=== PATIENT | female | born 1970 | race Two or more races ===

== ENCOUNTER 2017-02-18 20:42 | Emergency (ER) | payer OTHER ==
[~2017-02-18] VITALS: Ht 160 cm; Wt 72.6 kg
--- NOTE | 2017-02-18 20:50 | NUR ---
PT REY FROM [facility] FOR ABNORMAL LABS K 2.9 PER. PT NONVERBAL. PT ABLE TO NOD YES AND NO TO QUESTIONS. NO SOB NOTED. PT CONNECTED TO VENT WITH PRESCRIBED SETTINGS: SHILEY 8 AC 12VT 450 PEEP 5 FI02 35%. PT HAS IV ON LEFT HAND 24G INTACT AND PATENT PLACED BY SNF. PT PLACED ON MONITOR WAITING FOR MD TRACEY.
[2017-02-18 20:57] VITALS: BP 103/47
--- NOTE | 2017-02-18 21:00 | NUR ---
RT NOTE PT PLACED ON VENT. SETTINGS ENDORSED BY TRANSPORT RT AC 12 450 35% +5. PT VENTILATED VIA SHILEY 8 TRACH. PT AWAKE AND ALERT. ALARMS SET PER PROTOCOL AND AUDIBLE. VENT PLUGGED IN TO RED OUTLET. AMBU BAG AT BED SIDE. NO DISTRESS NOTED. WILL CONTINUE TO MONITOR. Addendum: 02/18/17 at 2102 by ANGELICA DE LEÓN RT Amended: Links added.
--- NOTE | 2017-02-18 21:10 | NUR ---
LAB AT BEDSIDE FOR BLOOD DRAW.
--- NOTE | 2017-02-18 21:10 | NUR ---
FAMILY AT BEDSIDE
[2017-02-18 21:19] LABS: CALCIUM, SERUM 9.7 mg/dL (8.5-10.1); CREATININE 0.8 mg/dL (0.6-1.3)
[2017-02-18 21:20] LABS: POTASSIUM 2.8 mmol/L (3.5-5.1)
[2017-02-18] MEDS ORDERED: POTASSIUM CL. PREMIX PERIPHER. 50 ML IV ONE (21:25)
[2017-02-18] MEDS ORDERED: Magnesium 1GM/D5W 100ML PREMIX 100 ML IV ONE ×4 (21:25→21:48)
[2017-02-18] MEDS ORDERED: POTASSIUM CL. PREMIX PERIPHER. 50 ML ONE ×2 (21:34→22:49)
[2017-02-18 21:36] LABS: BASOPHILS # (AUTO) 0.1 /CMM (0.0-0.2); BASOPHILS % (AUTO) 0.7 % (0.0-2.0); EOSINOPHILS # (AUTO) 0.2 /CMM (0.0-0.7); EOSINOPHILS % (AUTO) 1.8 % (0.0-6.0); HEMATOCRIT 33 % (33-45); HEMOGLOBIN 11.1 g/dL (11.5-14.8); LYMPHOCYTES # (AUTO) 2.2 /CMM (0.8-4.8); LYMPHOCYTES % (AUTO) 20.4 % (20.0-44.0); MEAN CORPUSCULAR HEMOGLOBIN 31 PG (26.0-33.0); MEAN CORPUSCULAR HGB CONC 34 g/dl (31.0-36.0); MEAN CORPUSCULAR VOLUME 92 fL (82-100); MONOCYTES # (AUTO) 0.7 /CMM (0.1-1.30); NEUTROPHILS # (AUTO) 7.5 /CMM (1.8-8.9); NEUTROPHILS % (AUTO) 70.1 % (43.0-81.0); PLATELET COUNT (AUTO) 349 /CMM (150-450); RDW COEFFICIENT OF VARIATION 13.6 (11.5-15.0); WHITE BLOOD COUNT (AUTO) 10.7 K/uL (4.3-11.0)
--- NOTE | 2017-02-18 21:52 | NUR ---
DR. MATT SPOKE TO DR. GRAHAM REGARDING PT POC.
[2017-02-18] MEDS ORDERED: POTASSIUM CHLORIDE 20 MEQ TAB.PRT.SR PO ONE ×2 (22:00→22:02)
[2017-02-18 23:03] VITALS: BP 110/53
--- NOTE | 2017-02-18 23:28 | NUR ---
CALLED [facility] FOR TRANSPORT, ETA OF 1HR AND A HALF TO 2 HOURS.
[2017-02-18] MEDS ORDERED: POTASSIUM CHLORIDE 10 MEQ/50 ML PREMIXED IVPB FOR PERIPHERAL LINE IV ONE (23:30)
[2017-02-19 00:13] LABS: BILIRUBIN,DIRECT 0.1 mg/dL (0.0-0.2); BILIRUBIN,TOTAL 0.4 mg/dL (0.2-1.0)
[2017-02-19 02:30] VITALS: BP 137/79
--- NOTE | 2017-02-19 02:30 | NUR ---
REPORT GIVEN TO [facility] FOR [facility]. EMT PROVIDED WILL ALL D/C PAPERS. IV'S INTACT AND PATENT. NO S/S INFECTION OR INFILTRATION NOTED. PT TRANSFERED VIA GURNEY WITH ALL PERSONAL BELONGINGS. TRANPORT RT AND EMT'S TOOK OVER CARE.
== END 2017-02-19 02:30 | disposition home or self-care (01) ==
LOC: ER 20:44
DX: E87.6 Hypokalemia (principal); G93.40 Encephalopathy, unspecified; G35 Multiple sclerosis; K21.9 Gastro-esophageal reflux disease without esophagitis; I11.0 Hypertensive heart disease with heart failure; I50.9 Heart failure, unspecified; Z93.0 Tracheostomy status; Z93.1 Gastrostomy status
CPT/HCPCS: 36415; 71010; 80048; 82247; 82248; 83605 ×2; 85025; 87040 ×2; 93005; 96365; 96366; 96368; 99285; A4606; J3475 ×2; J3480 ×2; Z7610